=== PATIENT | male | born 1970 | race African-American/Black ===

== ENCOUNTER 2018-02-03 19:23 | Emergency (ER) | payer MEDICAID ==
[~2018-02-03] VITALS: Ht 175.3 cm; Wt 68.0 kg
[2018-02-03] MEDS ORDERED: TETANUS, DIPHTHERIA, PERTUSSIS VAC/PF 0.5ML (>7YR OLD) IM ONE (20:15)
[2018-02-03] MEDS ORDERED: ACETAMINOPHEN WITH CODEINE 300/30MG TABLET PO ONE (20:15)
[2018-02-03 22:30] VITALS: BP 125/71
== END 2018-02-03 22:41 | disposition home or self-care (01) ==
LOC: ER 19:29
DX: S01.81XA Laceration without foreign body of other part of head, initial encounter (principal); S01.01XA Laceration without foreign body of scalp, initial encounter; R51 Headache; Y04.2XXA Assault by strike against or bumped into by another person, initial encounter; Y93.89 Activity, other specified; Y92.89 Other specified places as the place of occurrence of the external cause; Z23 Encounter for immunization; R03.0 Elevated blood-pressure reading, without diagnosis of hypertension; F17.210 Nicotine dependence, cigarettes, uncomplicated; F12.90 Cannabis use, unspecified, uncomplicated
CPT/HCPCS: 12002; 12013; 70450; 90471; 90715; 99284; X7700; Z7610

== ENCOUNTER 2018-02-06 11:28 | Emergency (ER) | payer MEDICAID ==
[~2018-02-06] VITALS: Ht 180.3 cm; Wt 69.0 kg
[2018-02-06 12:08] VITALS: BP 99/61
== END 2018-02-06 15:03 | disposition left against medical advice (07) ==
LOC: ER 13:07
DX: Z53.21 Procedure and treatment not carried out due to patient leaving prior to being seen by health care provider (principal)

== ENCOUNTER 2018-02-11 10:57 | Emergency (ER) | payer MEDICAID ==
[~2018-02-11] VITALS: Ht 172.7 cm; Wt 70.0 kg
[2018-02-11 10:59] VITALS: BP 123/86
== END 2018-02-11 15:00 | disposition left against medical advice (07) ==
LOC: ER 11:06
DX: Z53.21 Procedure and treatment not carried out due to patient leaving prior to being seen by health care provider (principal); E11.9 Type 2 diabetes mellitus without complications; I10 Essential (primary) hypertension; F17.210 Nicotine dependence, cigarettes, uncomplicated